=== PATIENT | male | born 1980 | race African-American/Black ===

== ENCOUNTER 2018-08-30 14:06 | Inpatient (IN) | payer OTHER | END 2018-08-31 13:08 | disposition other institution (70) | LOC: EAST 08-31 08:10 → ER 14:06 → OVERFLOW 17:22 | DX: R45.851 Suicidal ideations (principal) ==

== ENCOUNTER 2018-09-03 16:12 | Emergency (ER) | payer OTHER ==
[~2018-09-03] VITALS: Ht 177.8 cm; Wt 76.2 kg
[~2018-09-03 16:12] MED LIST: CEPH-37 PO; SERT-138 PO
[2018-09-03] MEDS ORDERED: LIDOCAINE 2% (LOCAL ANESTH.) PF 5ml SDV ONE (16:28)
[2018-09-03] MEDS ORDERED: LIDOCAINE 2%HCL (LOCAL ANESTH.) INJ 10ml MDV IJ ONE (17:00)
[2018-09-03] MEDS ORDERED: cefTRIAXone SOD 1,000 MG VL IM ONE (19:00)
[2018-09-03 19:18] VITALS: BP 122/59
[2018-09-03] MEDS ORDERED: HYDROcodone-ACET 10/325MG TAB PO ONE (19:30)
== END 2018-09-03 19:25 | disposition home or self-care (01) ==
LOC: EDBD 16:12 → ER 16:14 → EEVIPCON 16:14 → ER 19:25
DX: S11.81XA Laceration without foreign body of other specified part of neck, initial encounter (principal); F32.9 Major depressive disorder, single episode, unspecified; X78.8XXA Intentional self-harm by other sharp object, initial encounter; Y93.89 Activity, other specified; Y92.89 Other specified places as the place of occurrence of the external cause; Y99.8 Other external cause status
CPT/HCPCS: 12007; 96372; 99283; J0696; J2001